=== PATIENT | male | born 1965 | race African-American/Black ===

== ENCOUNTER 2019-08-15 08:11 | Inpatient (IN) ==
[2019-08-15] MEDS ORDERED: SODIUM CHLORIDE 0.9% 1,000 ML IV STA (08:21)
[2019-08-15] MEDS ORDERED: ASPIRIN 325 MG TABLET PO STA (08:21)
[2019-08-15 08:52] LABS: Basophils # 0.1 10*3/uL (0.0-0.2); Basophils % 0.8 % (0.0-0.8); Eosinophils # 0.2 10*3/uL (0.0-0.87); Eosinophils % 3.5 % (0.00-10.9); Hematocrit 51.8 VOL% (42.0-52.0); Hemoglobin 17.1 GM/DL (14.0-18.0); Immature Granulocytes % 0.5 %; Immature Granulocytes Absolute 0.03 #; Lymphocytes # 3.1 10*3/uL (1.4-4.0); Lymphocytes % 51.3 % (21.2-54.2); Mean Corpuscular Volume 92.2 FL (87-102); Mean Platelet Volume 10.2 FL (9.6-12.0); Monocytes % 8.5 % (1.7-12.7); Neutrophils % 35.4 % (38.7-73.9); Platelet Count 274 T/CUMM (130-400); Red Blood Count 5.62 MC/CUMM (3.8-5.5); Red Cell Distribution Width 13.2 % (9.3-17.3)
[2019-08-15 09:13] LABS: Albumin 4.1 G/DL (3.4-5.0); Bilirubin,Total 0.5 MG/DL (0.2-1.0); Osmolality,Calculated 275.7 MOS/KG (273-304); Total Protein 8.3 G/DL (6.4-8.3)
[2019-08-15 09:30] LABS: Atypical Lymphocytes Few; Band Neutrophils 1 % (0-10); Eosinophils 5 % (0-10); Lymphocytes 60 % (20-55); Segmented Neutrophils 27 % (50-85); Total Cells Counted 100
[2019-08-15 09:31] LABS: Hypochromasia 1+
[2019-08-15] MEDS ORDERED: PANTOPRAZOLE 40 MG VIAL IV STA (10:08)
[2019-08-15] MEDS ORDERED: ONDANSETRON 4 MG/2 ML VIAL ONE (10:32)
[2019-08-15] MEDS ORDERED: ONDANSETRON 4 MG/2 ML VIAL IV STA (10:33)
[2019-08-15] MEDS ORDERED: LACTATED RINGERS 1,000 ML IV ONE (10:55)
[2019-08-15] MEDS ORDERED: DOPamine 800 MG/250 ML PREMIX IV PRN (10:55)
[2019-08-15 11:04] LABS: Hematocrit 47.7 VOL% (42.0-52.0); Hemoglobin 15.7 GM/DL (14.0-18.0)
[2019-08-15] MEDS ORDERED: ONDANSETRON 4 MG/2 ML VIAL IV PRN (11:19)
[2019-08-15] MEDS ORDERED: ACETAMINOPHEN 325 MG TABLET PO PRN (11:19)
[2019-08-15] MEDS: LACTATED RINGERS 1,000 ML IV SCH (14:57)
[2019-08-15 15:53] LABS: Hematocrit 50.1 VOL% (42.0-52.0); Hemoglobin 16.9 GM/DL (14.0-18.0)
[2019-08-15 18:15] LABS: Apearance,Urine CLEAR (Clear); Bilirubin,Urine Negative (Negative); Blood, Urine Negative (Negative); Glucose,Urine (UA) Negative (Negative); Ketones,Urine Negative (Negative); Nitrite,Urine Negative (Negative); Protein,Urine Negative; RBC,Urine <1 /HPF (0-4); Urine Color Yellow (Yellow); Urine Specific Gravity 1.018 (1.001-1.035); Urine Urobilinogen < 2.0 EU/DL (0.2-1.0); WBC,Urine <1 /HPF (0-6)
[2019-08-15 19:29] LABS: Barbiturates Screen,Urine Negative (Negative); Benzodiazepines Screen,Urine Negative (Negative); Cannabinoid Screen,Urine Negative (Negative); Opiate Screen,Urine Negative (Negative); Phencyclidine Screen,Urine Negative (Negative)
[2019-08-15] MEDS: PANTOPRAZOLE 40 MG VIAL IV SCH (20:25)
[2019-08-15 22:12] LABS: Hemoglobin 15.4 GM/DL (14.0-18.0)
[2019-08-16] MEDS: LACTATED RINGERS 1,000 ML IV SCH ×2 (01:28→11:32)
[2019-08-16 05:03] LABS: Basophils % 0.3 % (0.0-0.8); Eosinophils # 0.2 10*3/uL (0.0-0.87); Eosinophils % 2.6 % (0.00-10.9); Hematocrit 46.4 VOL% (42.0-52.0); Hemoglobin 15.6 GM/DL (14.0-18.0); Immature Granulocytes % 0.3 %; Immature Granulocytes Absolute 0.02 #; Lymphocytes # 2.1 10*3/uL (1.4-4.0); Lymphocytes % 32.9 % (21.2-54.2); Mean Corpuscular HGB Conc 33.6 GM/DL (32-36); Mean Corpuscular Volume 89.4 FL (87-102); Mean Platelet Volume 10.4 FL (9.6-12.0); Monocytes % 9.3 % (1.7-12.7); Neutrophils % 54.6 % (38.7-73.9); Platelet Count 256 T/CUMM (130-400); Red Blood Count 5.19 MC/CUMM (3.8-5.5); Red Cell Distribution Width 12.6 % (9.3-17.3); White Blood Count 6.2 T/CUMM (4-12)
[2019-08-16 05:43] LABS: Albumin 3.7 G/DL (3.4-5.0); Bilirubin,Total 0.8 MG/DL (0.2-1.0); Osmolality,Calculated 273.7 MOS/KG (273-304); Total Protein 7.3 G/DL (6.4-8.3)
[2019-08-16] MEDS ORDERED: POTASSIUM CHLORIDE 20 MEQ TABLET PO ONE (07:51)
[2019-08-16] MEDS: PANTOPRAZOLE 40 MG VIAL IV SCH ×2 (08:26→20:22)
[2019-08-16] MEDS ORDERED: BISACODYL 5 MG TABLET PO ONE (15:00)
[2019-08-16] MEDS ORDERED: POTASSIUM CHLORIDE 20 MEQ TABLET PO PRN (17:54)
[2019-08-16] MEDS ORDERED: POLYETHYLENE GLYCOL POWDER 255 GM BOTTLE PO ONE (18:00)
[2019-08-17] MEDS: LACTATED RINGERS 1,000 ML IV SCH ×3 (04:10→16:38)
[2019-08-17 05:22] LABS: Basophils % 0.5 % (0.0-0.8); Eosinophils # 0.2 10*3/uL (0.0-0.87); Eosinophils % 3.3 % (0.00-10.9); Hematocrit 42.4 VOL% (42.0-52.0); Immature Granulocytes % 0.2 %; Immature Granulocytes Absolute 0.01 #; Lymphocytes # 3.6 10*3/uL (1.4-4.0); Mean Corpuscular Volume 91.2 FL (87-102); Mean Platelet Volume 10.4 FL (9.6-12.0); Monocytes % 9.9 % (1.7-12.7); Neutrophils % 30.1 % (38.7-73.9); Platelet Count 238 T/CUMM (130-400); Red Blood Count 4.65 MC/CUMM (3.8-5.5); White Blood Count 6.4 T/CUMM (4-12)
[2019-08-17 05:38] LABS: Calcium 8.9 MG/DL (8.5-10.1); Osmolality,Calculated 273.5 MOS/KG (273-304)
[2019-08-17 05:48] LABS: Atypical Lymphocytes Few; Eosinophils 6 % (0-10); Lymphocytes 52 % (20-55); Platelet Estimate Adequate; Segmented Neutrophils 30 % (50-85); Total Cells Counted 100
[2019-08-17] MEDS ORDERED: MAGNESIUM CITRATE 300 ML BOTTLE PO ONE (06:00)
[2019-08-17] MEDS ORDERED: LACTATED RINGERS 1,000 ML IV SCH (08:00)
[2019-08-17] MEDS: PANTOPRAZOLE 40 MG VIAL IV SCH (08:59)
[2019-08-17] MEDS ORDERED: LIDOCAINE 2% 5 ML VIAL ONE (09:00)
[2019-08-17] MEDS ORDERED: propofoL 200 MG/20 ML VIAL IV ONE (09:00)
[2019-08-17] MEDS ORDERED: ONDANSETRON 4 MG/2 ML VIAL ONE (14:08)
[2019-08-17 16:07] VITALS: BP 150/93
[2019-08-17] MEDS ORDERED: POTASSIUM CHLORIDE 20 MEQ TABLET PO ONE (17:39)
== END 2019-08-17 18:28 | disposition home or self-care (01) | DRG 378 ==
LOC: EDUNIT# → EDBD → N.ED 08:11 → N.EDINP 11:19 → SUATTDRO 11:19 → N.CC 12:55 → N.4E 08-16 12:16
PROVIDERS: ADMIT Family Medicine; ATTEND Internal Medicine